=== PATIENT | female | born 1975 | race Caucasian/White ===

== ENCOUNTER 2017-10-20 12:31 | Emergency (ER) | payer BC ==
--- NOTE | 2017-10-20 13:42 | Emergency Department Record ---
History of Present Illness - General Chief complaint: Extremity Problem Stated complaint: CALF TENDERNESS Time Seen by Provider: 10/20/17 13:39 Source: Patient, RN notes reviewed Mode of Arrival: Wheelchair - History of Present Illness Initial comments: left calf and thigh pain while in physical therapy and she is worried about a blood clot and came to the ED and she has never had a blood clot before. Patient has planter fascitis and is wearing a ansari boot PRN . not on now. Onset/Timin -: Minutes(s) Location: Left, Lower Leg History of Same: No Radiation: None Severity scale (1-10): 4 Quality: Other Consistency: Intermittent Improves with: Nothing Worsens with: Palpation Associated Symptoms: Denies other symptoms - Related Data Home Medications Medication Instructions Recorded Confirmed Last Taken Bupropion HCl [Bupropion Xl] 150 mg PO DAILY 10/20/17 10/20/17 10/20/17 Losartan/Hydrochlorothiazide 1 each PO DAILY 10/20/17 10/20/17 10/20/17 [Losartan-Hctz 100-25 mg Tab] Previous Rx's Medication Instructions Recorded Omeprazole [Prilosec] 20 mg PO DAILY #20 cap. 04/01/15 Naproxen [Naprosyn] 500 mg PO BID #20 tablet 10/20/17 Allergies Allergy/AdvReac Type Severity Reaction Status Date / Time amoxicillin trihydrate Allergy RASH Verified 10/20/17 12:40 [From Augmentin] clarithromycin [From Biaxin] Allergy stomach Verified 10/20/17 12:40 ache potassium clavulanate Allergy RASH Verified 10/20/17 12:40 [From Augmentin] sulfamethoxazole Allergy RASH Verified 10/20/17 12:40 [From Bactrim] trimethoprim [From Bactrim] Allergy RASH Verified 10/20/17 12:40 Travel Screening - Travel/Exposure Within Last 30 Days Have you traveled within the last 30 days?: No - Travel/Exposure Within Last Year Have you traveled outside the [place] in the last year?: No - Additonal Travel Details Have you been exposed to anyone with a communicable illness?: No - Travel Symptoms Symptom Screening: None Review of Systems Reviewed: No additional complaints except as noted below Constitutional: Reports: As per HPI. Denies: Chills, Fever, Malaise, Night sweats, Weakness, Weight change Eyes: Reports: As per HPI. Denies: Eye discharge, Eye pain, Photophobia, Vision change ENT: Reports: As per HPI. Denies: Congestion, Dental pain, Ear pain, Epistaxis , Hearing loss, Throat pain Respiratory: Reports: As per HPI. Denies: Cough, Dyspnea, Hemoptysis, Stridor, Wheezes Cardiovascular: Reports: As per HPI. Denies: Arrhythmia, Chest pain, Dyspnea on exertion, Edema, Murmurs, Orthopnea, Palpitations, Paroxysmal nocturnal dyspnea, Rheumatic Fever, Syncope Endocrine: Reports: As per HPI. Denies: Fatigue, Heat or cold intolerance, Polydipsia, Polyuria Gastrointestinal: Reports: As per HPI. Denies: Abdominal pain, Constipation, Diarrhea, Hematemesis, Hematochezia, Melena, Nausea, Vomiting Genitourinary: Reports: As per HPI. Denies: Abnormal menses, Discharge, Dyspareunia, Dysuria, Frequency, Hematuria, Incontinence, Retention, Urgency Musculoskeletal: Reports: As per HPI. Denies: Arthralgia, Back pain, Gout, Joint swelling, Myalgia, Neck pain Skin: Reports: As per HPI. Denies: Bruising, Change in color, Change in hair/ nails, Lesions, Pruritus, Rash Neurological: Reports: As per HPI. Denies: Abnormal gait, Confusion, Headache, Numbness, Paresthesias, Seizure, Tingling, Tremors, Vertigo, Weakness Psychiatric: Reports: As per HPI. Denies: Anxiety, Auditory hallucinations, Depression, Homicidal thoughts, Suicidal thoughts, Visual hallucinations Hematological/Lymphatic: Reports: As per HPI. Denies: Anemia, Blood Clots, Easy bleeding, Easy bruising, Swollen glands Past Medical History - SOCIAL HISTORY Smoking Status: Former smoker Alcohol Use: Rare Drug Use: None - RESPIRATORY Hx Respiratory Disorders: Yes Hx Sleep Apnea: Yes - CARDIOVASCULAR Hx Cardio Disorders: Yes Hx Hypertension: Yes - NEURO Hx Neuro Disorders: No - GI Hx GI Disorders: Yes Hx Irritable Bowel: Yes - Hx Genitourinary Disorders: No - ENDOCRINE Hx Endocrine Disorders: No - MUSCULOSKELETAL Hx Musculoskeletal Disorders: Yes Comment:: Fibromyalgia - PSYCH Hx Psych Problems: Yes Hx Anxiety: Yes Hx Depression: Yes - HEMATOLOGY/ONCOLOGY Hx Hematology/Oncology Disorders: Yes Hx Anemia: Yes Family Medical History Any Significant Family History?: Yes Family Hx Comment (NOT TO BE USED IN PLACE OF ITEMS BELOW): grandmother-w/ diverticulitis Hx Cancer: Grandparents Hx Dementia: Grandparents Hx Diabetes: Grandparents Hx HTN: Father, Mother, Grandparents Physical Exam - General General Appearance: Alert, Oriented x3, Cooperative, Mild distress - Head Head exam: Normal inspection - Eye Eye exam: Normal appearance, PERRL Pupils: Normal accommodation - ENT ENT exam: Normal exam, Mucous membranes moist, Normal external ear exam, Normal orophraynx, TM's normal bilaterally Ear exam: Normal external inspection. negative: External canal tenderness Nasal Exam: Normal inspection. negative: Discharge, Sinus tenderness Mouth exam: Normal external inspection, Tongue normal Teeth exam: Normal inspection. negative: Dental caries Throat exam: Normal inspection. negative: Tonsillar erythema, Tonsillar exudate - Neck Neck exam: Normal inspection, Full ROM. negative: Tenderness - Respiratory Respiratory exam: Normal lung sounds bilaterally. negative: Respiratory distress - Cardiovascular Cardiovascular Exam: Regular rate, Normal rhythm, Normal heart sounds - GI/Abdominal GI/Abdominal exam: Soft, Normal bowel sounds. negative: Tenderness - Rectal Rectal exam: Deferred - exam: Deferred - Extremities Extremities exam: Normal inspection, Full ROM, Normal capillary refill. negative: Tenderness - Back Back exam: Reports: Normal inspection, Full ROM. Denies: Muscle spasm, Rash noted, Tenderness - Neurological Neurological exam: Alert, Normal gait, Oriented X3, Reflexes normal - Psychiatric Psychiatric exam: Normal affect, Normal mood - Skin Skin exam: Dry, Intact, Normal color, Warm Course Vital Signs 10/20/17 12:48 Temperature 97.9 F Pulse Rate 76 Respiratory 18 Rate Blood Pressure 142/96 Pulse Ox 96 Medical Decision Making - Data Complexity MDM Data: X-Ray Ordered and/or Reviewed (venous dopler negative for DVT's) Disposition Clinical Impression: Strain of muscle of posterior lower leg Leg pain Qualifiers: Laterality: left Qualified Code(s): M79.605 - Pain in left leg Disposition: Home, Self-Care Condition: (1) Good Instructions: Musculoskeletal Pain (ED) Additional Instructions: follow up with family in one week take naprosyn twice a day for one week Prescriptions: Naproxen [Naprosyn] 500 mg PO BID #20 tablet Forms: Patient Portal Access Time of Disposition: 17:31 Quality - Quality Measures Quality Measures: N/A - Blood Pressure Screening Does Patient Have Any of the Following: No Blood Pressure Classification: Hypertensive Reading Systolic Measurement: 142 Diastolic Measurement: 96 Screening for High Blood Pressure: < Pre-Hypertensive BP, F/U Documented > [ [id number]] Pre-Hypertensive Follow-up Interventions: Referral to alternative/primary care provider.
== END 2017-10-20 17:40 | disposition home or self-care (01) ==
LOC: ER 12:31
DX: S86.112A Strain of other muscle(s) and tendon(s) of posterior muscle group at lower leg level, left leg, initial encounter (principal); X50.0XXA Overexertion from strenuous movement or load, initial encounter; I10 Essential (primary) hypertension; Z87.891 Personal history of nicotine dependence
CPT/HCPCS: 99283

== ENCOUNTER 2018-04-30 14:17 | Emergency (ER) | payer BC ==
--- NOTE | 2018-04-30 14:33 | Emergency Department Record ---
History of Present Illness - General Stated Complaint: CHEST FEELS TIGHT Time Seen by Provider: 04/30/18 14:23 Source: Patient, Family Mode of Arrival: Ambulatory Limitations: No limitations - History of Present Illness Initial Comments: 42 yo female presents with discomfort in her chest that started yesterday. The sensation seems to come and go. She states the sensation is a pressure/ tightness. She notices mostly with walking. When she walks normal activity distances she feels a tightness and short of breath. No history of CAD. No history of DVT or PE. No family history of CAD in her parents or siblings. She is a smoker. She did see a prepress manager at age 31 for palpitations. She has not seen the prepress manager since then. She has continue her Carvedilol since then. She has been under recent care by her PCP for chronic hip and back pain. She had a steroid shot this past week. She has hypertension, hyperlipidemia, obesity, and is a smoker. She does have fibromyalgia and frequently gets pains but the tightness with walking is new. MD Complaint: Chest pain -: Days(s) (1) Onset: During exertion, During rest Pain Location: Substernal, Right chest Pain Radiation: Other (right side lateral under her breast) Severity: Mild Quality: Aching, Tightness Consistency: Intermittent Improves With: Rest Worsens With: Inspiration, Movement, Palpation Anginal Symptoms: Dyspnea Other Symptoms: Cough, Other (Hoarse voice, hurts to take a deep breath) Treatments Prior to Arrival: None - Related Data Previous Rx's Medication Instructions Recorded Omeprazole [Prilosec] 20 mg PO DAILY #20 04/01/15 Allergies Allergy/AdvReac Type Severity Reaction Status Date / Time amoxicillin trihydrate Allergy RASH Verified 10/20/17 12:40 [From Augmentin] clarithromycin [From Biaxin] Allergy stomach Verified 10/20/17 12:40 ache potassium clavulanate Allergy RASH Verified 10/20/17 12:40 [From Augmentin] sulfamethoxazole Allergy RASH Verified 10/20/17 12:40 [From Bactrim] trimethoprim [From Bactrim] Allergy RASH Verified 10/20/17 12:40 Review of Systems Constitutional: Denies: Chills, Fever, Malaise, Weakness Eyes: Denies: Eye discharge ENT: Reports: Congestion. Denies: Throat pain Respiratory: Reports: Cough (chronic unchanged), Dyspnea. Denies: Hemoptysis, Stridor, Wheezes Cardiovascular: Reports: Chest pain, Dyspnea on exertion. Denies: Arrhythmia, Edema, Palpitations, Syncope Endocrine: Denies: Fatigue, Heat or cold intolerance, Polydipsia, Polyuria Gastrointestinal: Denies: Abdominal pain, Diarrhea, Nausea, Vomiting Genitourinary: Denies: Dysuria Musculoskeletal: Reports: As per HPI, Arthralgia, Back pain. Denies: Myalgia Skin: Denies: Bruising, Change in color, Rash Neurological: Denies: Headache, Numbness, Vertigo, Weakness Psychiatric: Denies: Anxiety Hematological/Lymphatic: Denies: Blood Clots, Easy bleeding, Easy bruising, Swollen glands Past Medical History - SOCIAL HISTORY Smoking Status: Former smoker Drug Use: None - RESPIRATORY Hx Respiratory Disorders: Yes Hx Sleep Apnea: Yes - CARDIOVASCULAR Hx Cardio Disorders: Yes Hx Hypertension: Yes - NEURO Hx Neuro Disorders: No - GI Hx GI Disorders: Yes Hx Irritable Bowel: Yes - Hx Genitourinary Disorders: No - ENDOCRINE Hx Endocrine Disorders: No - MUSCULOSKELETAL Hx Musculoskeletal Disorders: Yes Comment:: Fibromyalgia - PSYCH Hx Psych Problems: Yes Hx Anxiety: Yes Hx Depression: Yes - HEMATOLOGY/ONCOLOGY Hx Hematology/Oncology Disorders: Yes Hx Anemia: Yes Family Medical History Family Hx Comment (NOT TO BE USED IN PLACE OF ITEMS BELOW): grandmother-w/ diverticulitis Hx Cancer: Grandparents Hx Dementia: Grandparents Hx Diabetes: Grandparents Hx HTN: Father, Mother, Grandparents Physical Exam - General General Appearance: Alert, Oriented x3, Cooperative, No acute distress Limitations: No limitations - Head Head exam: Atraumatic, Normal inspection - Eye Eye exam: Normal appearance. negative: Conjunctival injection - ENT ENT exam: Normal exam, Mucous membranes moist Ear exam: Normal external inspection Nasal Exam: Normal inspection Mouth exam: Normal external inspection - Neck Neck exam: Normal inspection - Respiratory Respiratory exam: Normal lung sounds bilaterally, Chest wall tenderness (tender lateral right chest wall under the breast). negative: Decreased breath sounds, Prolonged expiratory, Respiratory distress, Wheezes - Cardiovascular Cardiovascular Exam: Regular rate, Normal rhythm, Normal heart sounds Peripheral Pulses: 2+: Radial (R), Radial (L) - GI/Abdominal GI/Abdominal exam: Soft. negative: Tenderness - Rectal Rectal exam: Deferred - exam: Deferred - Extremities Extremities exam: Normal inspection - Back Back exam: Denies: CVA tenderness (R), CVA tenderness (L) - Neurological Neurological exam: Alert, Normal gait, Oriented X3 - Psychiatric Psychiatric exam: Normal affect, Normal mood - Skin Skin exam: Dry, Intact, Normal color, Warm Course - Reevaluation(s) Reevaluation #1: EKG #1: 14:23 Rate: 92 Rhythm: sinus [place]: normal Intervals: normal ST segments: no acute changes, minimal normal early repolarization, likely normal variant The Prior: no prior on file 04/30/18 14:31 04/30/18 15:13 No acute changes on the CBC, CMP, 04/30/18 15:13 The D-Dimer is negative The glucose is 161 04/30/18 15:39 The Troponin is negative 04/30/18 16:22 An EKG was obtained from [facility] from 11/06/16. There are no new findings on direct comparison. She had similar normal early repolarization at that EKG as well The CXR was read as no acute changes I discussed the results with the patient. Given the chest tightness and shortness of breath with exertion are new with her risk factors of smoking, HTN, obesity, and Hypercholesterolemia I discussed the case with Dr Dumont. We discussed some symptoms are atypical with her fibromyalgia but the new exertional symptoms are the concern. He accepts the patient for transfer to [facility] for further evaluation with likely a stress test. 04/30/18 16:51 BP improved on serial checks 04/30/18 16:55 04/30/18 17:02 [facility] confirmed bed assignment Medical Decision Making - Lab Data Result diagrams: 04/30/18 14:35 04/30/18 14:35 Disposition Disposition: Transfer Clinical Impression: Chest pain Transfer To: [facility] Reason For Transfer: Chest Pain Accepting Physician: Tim Time Discussed w/Accepting Physician: 16:55 Condition: (2) Stable Time of Disposition: 16:56 Quality - Quality Measures Quality Measures: N/A - Blood Pressure Screening Does Patient Have Any of the Following: Active Dx of HTN Blood Pressure Classification: Hypertensive Reading Systolic Measurement: 202 Diastolic Measurement: 113 Screening for High Blood Pressure: Patient Exclusion, Hx of HTN [G9744]
[2018-04-30 14:50] LABS: HEMATOCRIT 39.4 % (35.0-47.0); HEMOGLOBIN 13.4 gm/dl (11.6-16.0); MEAN CELL VOLUME 84.9 fl (81-97); MEAN CORPUSCULAR HEMOGLOBIN 28.9 pg (27-33); MEAN PLATELET VOLUME 10.2 fl (7.4-10.4); PLATELET COUNT 319 K/uL (130-400); RED BLOOD COUNT 4.64 M/uL (3.80-5.40); WHITE BLOOD COUNT W/O DIFF 11.4 K/uL (4.2-12.2)
[2018-04-30] MEDS ORDERED: ASPIRIN 81 MG CHEWABLE TABLET PO ONE (14:52)
[2018-04-30 14:57] LABS: BLOOD UREA NITROGEN 16 mg/dL (6-20); CREATININE 0.8 mg/dL (0.5-0.9); EST GLOMERULAR FILTRATION RATE > 60 mL/min
[2018-04-30 14:58] LABS: TOTAL PROTEIN 7.6 g/dL (6.6-8.7)
[2018-04-30 15:00] LABS: GLUCOSE,RANDOM 162 mg/dL (74-109)
[2018-04-30 15:03] LABS: ALB/GLOB RATIO 1.6 (1.1-1.8); ALBUMIN 4.7 g/dL (4.0-5.0); ALKALINE PHOSPHATASE 42 U/L (45-87); ALT/SGPT 16 U/L (<33); AST/SGOT 11 U/L (10.0-35.0)
[2018-04-30 15:07] LABS: INR 1.1; PARTIAL THROMBOPLASTIN TIME 22.4 SECONDS (24.5-39.1); PROTHROMBIN TIME (PATIENT) 10.6 SECONDS (9.5-12.1)
--- NOTE | 2018-05-02 10:13 | RADIOLOGY REPORT ---
EXAM: CHEST, TWO VIEWS HISTORY: CHEST TIGHTNESS. TECHNIQUE: Two views of the chest were obtained. Comparison: None. FINDINGS: The cardiac silhouette is within normal size limits. No focal pulmonary consolidation. No pleural effusion or pneumothorax. Minimal chronic anterior wedging of a lower thoracic vertebral body, seen on CT comparison from 03/31/15. IMPRESSION: NO ACUTE LUNG FINDINGS. JOB NUMBER: [id number] MTDD
== END 2018-04-30 17:56 | disposition short-term general hospital (02) ==
LOC: ER 14:17
DX: R07.89 Other chest pain (principal); R05 Cough; R06.02 Shortness of breath; M79.7 Fibromyalgia; I10 Essential (primary) hypertension; Z87.891 Personal history of nicotine dependence
CPT/HCPCS: 71046; 80053; 84484; 84703; 85027; 85379; 85610; 85730; 93005; 93010; 99285

== ENCOUNTER 2018-12-05 21:18 | Emergency (ER) | payer BC ==
[2018-12-05] MEDS ORDERED: KETOROLAC 30 MG/ML VIAL IM ONE (22:42)
--- NOTE | 2018-12-05 23:14 | Emergency Department Record ---
History of Present Illness - General Chief complaint: Pain Stated complaint: RT SHOULDER PAIN Time Seen by Provider: 12/05/18 22:36 Source: Patient Mode of Arrival: Ambulatory Limitations: No limitations - History of Present Illness Initial comments: pt reached into the back of the car yesterday and has had shoulder and back pain ever since. it hurts to touch it and to move. Complaint: Extremity pain Onset/Timin -: Days(s) Location: Right History of Same: No Severity scale (1-10): 8 Quality: Aching Consistency: Constant Improves with: Nothing Worsens with: Exertion, Palpation Associated Symptoms: Denies other symptoms - Related Data Previous Rx's Medication Instructions Recorded Omeprazole [Prilosec] 20 mg PO DAILY #20 jono. 04/01/15 Cyclobenzaprine HCl [Flexeril] 10 mg PO TID #14 tablet 12/05/18 Ibuprofen [Motrin 600Mg] 600 mg PO Q6H #20 tablet 12/05/18 Allergies Allergy/AdvReac Type Severity Reaction Status Date / Time amoxicillin trihydrate Allergy RASH Verified 10/20/17 12:40 [From Augmentin] clarithromycin [From Biaxin] Allergy stomach Verified 10/20/17 12:40 ache potassium clavulanate Allergy RASH Verified 10/20/17 12:40 [From Augmentin] sulfamethoxazole Allergy RASH Verified 10/20/17 12:40 [From Bactrim] trimethoprim [From Bactrim] Allergy RASH Verified 10/20/17 12:40 Travel Screening - Travel/Exposure Within Last 30 Days Have you traveled within the last 30 days?: No - Travel Symptoms Symptom Screening: None Review of Systems Reviewed: No additional complaints except as noted below Constitutional: Reports: As per HPI. Denies: Chills, Fever, Malaise, Night sweats, Weakness, Weight change Eyes: Reports: As per HPI. Denies: Eye discharge, Eye pain, Photophobia, Vision change ENT: Reports: As per HPI. Denies: Congestion, Dental pain, Ear pain, Epistaxis, Hearing loss, Throat pain Respiratory: Reports: As per HPI. Denies: Cough, Dyspnea, Hemoptysis, Stridor, Wheezes Cardiovascular: Reports: As per HPI. Denies: Arrhythmia, Chest pain, Dyspnea on exertion, Edema, Murmurs, Orthopnea, Palpitations, Paroxysmal nocturnal dyspnea, Rheumatic Fever, Syncope Endocrine: Reports: As per HPI. Denies: Fatigue, Heat or cold intolerance, Polydipsia, Polyuria Gastrointestinal: Reports: As per HPI. Denies: Abdominal pain, Constipation, Diarrhea, Hematemesis, Hematochezia, Melena, Nausea, Vomiting Genitourinary: Reports: As per HPI. Denies: Abnormal menses, Discharge, Dyspareunia, Dysuria, Frequency, Hematuria, Incontinence, Retention, Urgency Musculoskeletal: Reports: As per HPI. Denies: Arthralgia, Back pain, Gout, Joint swelling, Myalgia, Neck pain Skin: Reports: As per HPI. Denies: Bruising, Change in color, Change in hair/nails, Lesions, Pruritus, Rash Neurological: Reports: As per HPI. Denies: Abnormal gait, Confusion, Headache, Numbness, Paresthesias, Seizure, Tingling, Tremors, Vertigo, Weakness Psychiatric: Reports: As per HPI. Denies: Anxiety, Auditory hallucinations, Depression, Homicidal thoughts, Suicidal thoughts, Visual hallucinations Hematological/Lymphatic: Reports: As per HPI. Denies: Anemia, Blood Clots, Easy bleeding, Easy bruising, Swollen glands Past Medical History - SOCIAL HISTORY Smoking Status: Former smoker Alcohol Use: Rare Drug Use: None - RESPIRATORY Hx Respiratory Disorders: Yes Hx Sleep Apnea: Yes - CARDIOVASCULAR Hx Cardio Disorders: Yes Hx Hypertension: Yes - NEURO Hx Neuro Disorders: No - GI Hx GI Disorders: Yes Hx Irritable Bowel: Yes - Hx Genitourinary Disorders: No - ENDOCRINE Hx Endocrine Disorders: No - MUSCULOSKELETAL Hx Musculoskeletal Disorders: Yes Comment:: Fibromyalgia - PSYCH Hx Psych Problems: Yes Hx Anxiety: Yes Hx Depression: Yes - HEMATOLOGY/ONCOLOGY Hx Hematology/Oncology Disorders: Yes Hx Anemia: Yes Family Medical History Any Significant Family History?: Yes Family Hx Comment (NOT TO BE USED IN PLACE OF ITEMS BELOW): grandmother-w/diverticulitis Hx Cancer: Grandparents Hx Dementia: Grandparents Hx Diabetes: Grandparents Hx HTN: Father, Mother, Grandparents Physical Exam - General General Appearance: Alert, Oriented x3, Cooperative, Mild distress - Head Head exam: Normal inspection - Eye Eye exam: Normal appearance, PERRL, EOMI Pupils: Normal accommodation - ENT ENT exam: Normal exam, Mucous membranes moist, Normal external ear exam, Normal orophraynx Ear exam: Normal external inspection. negative: External canal tenderness Nasal Exam: Normal inspection. negative: Discharge, Sinus tenderness Mouth exam: Normal external inspection, Tongue normal Teeth exam: Normal inspection. negative: Dental caries Throat exam: Normal inspection. negative: Tonsillar erythema, Tonsillar exudate - Neck Neck exam: Normal inspection, Full ROM. negative: Tenderness - Respiratory Respiratory exam: Normal lung sounds bilaterally. negative: Respiratory distress - Cardiovascular Cardiovascular Exam: Regular rate, Normal rhythm, Normal heart sounds - GI/Abdominal GI/Abdominal exam: Soft, Normal bowel sounds. negative: Tenderness - Rectal Rectal exam: Deferred - exam: Deferred - Extremities Extremities exam: Normal capillary refill, Tenderness. negative: Full ROM Image of Full Body: 1 - tender to palpation - Back Back exam: Reports: Normal inspection, Full ROM. Denies: Muscle spasm, Rash noted, Tenderness - Neurological Neurological exam: Alert, CN II-XII intact, Normal gait, Oriented X3 - Psychiatric Psychiatric exam: Normal affect, Normal mood - Skin Skin exam: Dry, Intact, Normal color, Warm Course Vital Signs 12/05/18 21:55 Temperature 97.6 F Pulse Rate 88 Respiratory 20 Rate Blood Pressure 189/119 Pulse Ox 97 Disposition Disposition: Discharge Clinical Impression: Trapezius muscle strain Qualifiers: Encounter type: initial encounter Laterality: right Qualified Code(s): S46.811A - Strain of other muscles, fascia and tendons at shoulder and upper arm level, right arm, initial encounter Disposition: Home, Self-Care Condition: (1) Good Instructions: Muscle Strain (ED) Additional Instructions: follow up with family doctor. return sooner if worse. ice every 4 hours as needed. Prescriptions: Cyclobenzaprine HCl [Flexeril] 10 mg PO TID #14 tablet Ibuprofen [Motrin 600Mg] 600 mg PO Q6H #20 tablet Forms: Patient Portal Access Quality - Quality Measures Quality Measures: N/A - Blood Pressure Screening Does Patient Have Any of the Following: Active Dx of HTN Blood Pressure Classification: Hypertensive Reading Systolic Measurement: 189 Diastolic Measurement: 119 Screening for High Blood Pressure: Patient Exclusion, Hx of HTN [G9744]
[2018-12-05] MEDS ORDERED: HYDROCODONE/APAP 5/325MG TABLET PO ONE (23:20)
== END 2018-12-05 23:37 | disposition home or self-care (01) ==
LOC: ER 21:18
DX: S46.811A Strain of other muscles, fascia and tendons at shoulder and upper arm level, right arm, initial encounter (principal); X50.0XXA Overexertion from strenuous movement or load, initial encounter; I10 Essential (primary) hypertension; Z87.891 Personal history of nicotine dependence
CPT/HCPCS: 71046; 96372; 99284; J1885

== ENCOUNTER 2019-05-10 21:36 | Emergency (ER) | payer BC ==
--- NOTE | 2019-05-10 21:57 | Emergency Department Record ---
History of Present Illness - General Chief complaint: Pain Stated complaint: KNEE PAIN Time Seen by Provider: 05/10/19 21:50 Source: Patient Mode of Arrival: Ambulatory Limitations: No limitations - History of Present Illness Initial comments: Pt to ED with complaint of right knee pain for "at least 4 months". Pt has been seen for this by her [employer] and family doctor and has referral appointment with Ortho in one week. An MRI is planned. Pt denies recent injury, fall, trauma. There is nothing new today. "Nobody is doing anything". -: Month(s) Location: Right, Knee History of Same: Yes Radiation: None Severity scale (1-10): 10 Consistency: Constant Improves with: Nothing Worsens with: Palpation, Walking - Related Data Home Medications Medication Instructions Recorded Confirmed Last Taken Nabumetone 500 mg PO BID 05/10/19 05/10/19 05/10/19 Previous Rx's Medication Instructions Recorded Omeprazole [Prilosec] 20 mg PO DAILY #20 cap. 04/01/15 Ibuprofen [Motrin 600Mg] 600 mg PO Q6H #20 tablet 12/05/18 Allergies Allergy/AdvReac Type Severity Reaction Status Date / Time amoxicillin trihydrate Allergy RASH Verified 05/10/19 21:52 [From Augmentin] clarithromycin [From Biaxin] Allergy stomach Verified 05/10/19 21:52 ache potassium clavulanate Allergy RASH Verified 05/10/19 21:52 [From Augmentin] sulfamethoxazole Allergy RASH Verified 05/10/19 21:52 [From Bactrim] trimethoprim [From Bactrim] Allergy RASH Verified 05/10/19 21:52 Travel/Exposure Screening - Travel/Exposure Within Last 30 Days Have you traveled within the last 30 days?: No - Travel/Exposure Within Last Year Have you traveled outside the [place] in the last year?: No - Additonal Travel/Exposure Details Have you been exposed to anyone with a communicable illness?: No - Travel Symptoms Symptom Screening: None Review of Systems Constitutional: Denies: Chills, Fever ENT: Denies: Congestion Respiratory: Denies: Cough Cardiovascular: Denies: Chest pain Endocrine: Denies: Fatigue Gastrointestinal: Denies: Abdominal pain Musculoskeletal: Reports: As per HPI Skin: Denies: Bruising Neurological: Denies: Abnormal gait, Headache, Tingling Psychiatric: Denies: Anxiety Hematological/Lymphatic: Denies: Anemia Past Medical History - SOCIAL HISTORY Smoking Status: Former smoker - RESPIRATORY Hx Respiratory Disorders: Yes Hx Sleep Apnea: Yes - CARDIOVASCULAR Hx Cardio Disorders: Yes Hx Hypertension: Yes - NEURO Hx Neuro Disorders: No - GI Hx GI Disorders: Yes Hx Irritable Bowel: Yes - Hx Genitourinary Disorders: No - ENDOCRINE Hx Endocrine Disorders: No - MUSCULOSKELETAL Hx Musculoskeletal Disorders: Yes Comment:: Fibromyalgia - PSYCH Hx Psych Problems: Yes Hx Anxiety: Yes Hx Depression: Yes - HEMATOLOGY/ONCOLOGY Hx Hematology/Oncology Disorders: Yes Hx Anemia: Yes Family Medical History Any Significant Family History?: No Family Hx Comment (NOT TO BE USED IN PLACE OF ITEMS BELOW): grandmother- w/diverticulitis Hx Cancer: Grandparents Hx Dementia: Grandparents Hx Diabetes: Grandparents Hx HTN: Father, Mother, Grandparents Physical Exam - General General Appearance: Alert, Oriented x3, Cooperative, No acute distress - Head Head exam: Atraumatic, Normocephalic - Eye Eye exam: PERRL - ENT ENT exam: Mucous membranes moist Ear exam: Normal external inspection Nasal Exam: Normal inspection - Respiratory Respiratory exam: negative: Respiratory distress - Extremities Extremities exam: Normal inspection. negative: Joint swelling (right knee without effusion. No erythema or skin lesions. Gait stable. ) - Neurological Neurological exam: Alert, Normal gait, Oriented X3 - Psychiatric Psychiatric exam: Normal affect, Normal mood - Skin Skin exam: Normal color. negative: Rash Course Vital Signs 05/10/19 21:42 Temperature 98.6 F Pulse Rate [ 95 H Pulse Ox Probe] Respiratory 20 Rate Blood Pressure 179/114 [Left Arm] Pulse Ox 97 - Reevaluation(s) Reevaluation #1: 05/10/19 21:55 Pt to ED with chronic issue that is under the care of her primary doctor with two specialists involved. She has an MRI and ORtho eval planned within the week. She has pain medications at home for her Fibromyalgia and Osteoarthritis (per pt history). At this time there is no acute injury to evaluate. I have discussed that I feel this is not appropriate for stronger pain meds and that she needs to follow with her plan for outpatient evaluation. Disposition Disposition: Discharge Clinical Impression: Knee pain, right anterior Disposition: Home, Self-Care Condition: (1) Good Instructions: Knee Pain (ED), RICE Therapy (ED) Additional Instructions: Take the meds you have at home for pain as needed. See Orthopedics as scheduled. Return to the ED as needed. Forms: Patient Portal Access Time of Disposition: 21:52 Quality - Quality Measures Quality Measures: N/A - Blood Pressure Screening Does Patient Have Any of the Following: No Blood Pressure Classification: Hypertensive Reading Systolic Measurement: 179 Diastolic Measurement: 114 Screening for High Blood Pressure: < Pre-Hypertensive BP, F/U Documented > [[id number]] Pre-Hypertensive Follow-up Interventions: Follow-up with rescreen every year.
== END 2019-05-10 22:10 | disposition home or self-care (01) ==
LOC: ER 21:36
DX: M25.561 Pain in right knee (principal); G89.29 Other chronic pain; I10 Essential (primary) hypertension; Z87.891 Personal history of nicotine dependence
CPT/HCPCS: 99283